=== PATIENT | male | born 1985 | race American Indian/Alaskan Native ===

== ENCOUNTER 2017-07-03 20:33 | Emergency (ER) | payer SELFPAY ==
[2017-07-03 23:04] LABS: Hematocrit 46.4 % (35.5-45.6); Hemoglobin 15.2 gm/dl (11.8-15.2); Mean Corpuscular HGB Conc 33 % (32-34); Mean Corpuscular Hemoglobin 28 pg (28-32); Mean Corpuscular Volume 87 fl (84-94); Platelet Count 228 K/mm3 (140-440); Red Blood Count 5.35 M/mm3 (3.65-5.03); Red Cell Distribution Width 14.3 % (13.2-15.2)
[2017-07-03 23:15] LABS: BUN/Creatinine Ratio 14; Blood Urea Nitrogen 13 mg/dL (9-20); Calcium 8.9 mg/dL (8.4-10.2); Hemolysis Index 34
--- NOTE | 2017-07-03 23:29 | XRay Report ---
FINAL REPORT EXAM: XR CHEST ROUTINE 2V HISTORY: Shortness of breath TECHNIQUE: Chest two views PRIORS: None. FINDINGS: Cardiac and mediastinal contours are unremarkable. No focal pulmonary infiltrate is identified. No pleural fluid collection seen. Pulmonary vasculature is unremarkable. IMPRESSION: Negative single-view chest
[2017-07-04 00:23] LABS: Bilirubin,Urine NEG (Negative); Blood,Urine MOD (Negative); Color,Urine Yellow (Yellow); Mucus,Urine FEW /HPF; Protein,Urine <15 mg/dL mg/dL (Negative); Urobilinogen,Urine < 2.0 mg/dL (<2.0); WBC,Urine < 1.0 /HPF (0.0-6.0)
[2017-07-04 00:28] LABS: Basophils % (Manual) 0 % (0.0-1.8); Total Cells Counted 100
[2017-07-04 00:29] LABS: Anisocytosis RARE; Stomatocytes Rare
--- NOTE | 2017-07-04 02:36 | Emergency Department Report ---
HPI - General Chief Complaint: Dyspnea/Respdistress Time Seen by Provider: 07/04/17 02:18 - HPI HPI: Room 18 The patient is a 32-year-old male presenting with a chief complaint shortness of breath and snoring at night. The patient states she's been told for 2 years that he snores very loudly and appears to have difficulty breathing and sleeping. The patient also noticed to chronic cough past 2 years. Patient denies chest pain. Patient states for the past 2 weeks she's had intermittent tightening of his abdomen. Patient denies any history of fever. The patient states he does not have a primary physician is not had a sleep study for his above complaints Location: [See above] Duration: 2 years Quality: [See above] Severity: Moderate Modifying factors: [see above] Context: [see above] Mode of transportation: [not driving] ED Past Medical Hx - Past Medical History Previous Medical History?: No Additional medical history: "had really bad strep infection, the strep virus was eating at my spine"-?2014/2015, undx'd sleep apnea - Surgical History Past Surgical History?: No - Family History Family history: no significant - Social History Smoking Status: Current Every Day Smoker (1/7 per day) Substance Use Type: Alcohol (3 cans of beers daily) - Medications Home Medications: Home Medications Medication Instructions Recorded Confirmed Last Taken Type ALBUTEROL Inhaler [ProAir HFA 2 puff IH QID PRN #1 inhalation 07/04/17 Unknown Rx Inhaler] ED Review of Systems ROS: Stated complaint: SOB/ABD PAIN Other details as noted in HPI Constitutional: denies: fever Respiratory: cough, shortness of breath (while asleep) Cardiovascular: denies: chest pain Gastrointestinal: abdominal pain, nausea, vomiting Physical Exam - Physical Exam Vital Signs: Vital Signs 07/03/17 07/04/17 07/04/17 22:39 02:24 02:26 Temperature 98.4 F 98.9 F Pulse Rate 80 82 Respiratory 18 14 22 Rate Blood Pressure 148/100 Blood Pressure 140/82 [Left] O2 Sat by Pulse 98 98 98 Oximetry Physical Exam: GENERAL: The patient is well-developed well-nourished male sitting on stretcher not appearing to be in acute distress. [] HEENT: Normocephalic. Atraumatic. Extraocular motions are intact. Patient has moist mucous membranes. NECK: Supple. Trachea midline CHEST/LUNGS: Clear to auscultation. There is no respiratory distress noted. HEART/CARDIOVASCULAR: Regular. There is no tachycardia. There is no gallop rub or murmur. ABDOMEN: Abdomen is soft, nontender. Patient has normal bowel sounds. There is no abdominal distention. No evidence of abdominal hernia when patient raise his head stretcher SKIN: There is no rash. There is no edema. There is no diaphoresis. NEURO: The patient is awake, alert, and oriented. The patient is cooperative. The patient has normal speech MUSCULOSKELETAL: There is no evidence of acute injury. ED Course Vital Signs 07/03/17 07/04/17 07/04/17 22:39 02:24 02:26 Temperature 98.4 F 98.9 F Pulse Rate 80 82 Respiratory 18 14 22 Rate Blood Pressure 148/100 Blood Pressure 140/82 [Left] O2 Sat by Pulse 98 98 98 Oximetry ED Medical Decision Making - Lab Data Result diagrams: 07/03/17 22:54 07/03/17 22:54 Laboratory Tests 07/03/17 07/03/17 07/04/17 22:54 22:54 00:07 WBC 11.4 H RBC 5.35 H Hgb 15.2 Hct 46.4 H MCV 87 MCH 28 MCHC 33 RDW 14.3 Plt Count 228 Add Manual Diff Complete Total Counted 100 Seg Neuts % (Manual) 58.0 Band Neutrophils % 0 Lymphocytes % (Manual) 29.0 Reactive Lymphs % (Man) 0 Monocytes % (Manual) 11.0 H Eosinophils % (Manual) 2.0 Basophils % (Manual) 0 Metamyelocytes % 0 Myelocytes % 0 Promyelocytes % 0 Blast Cells % 0 Nucleated RBC % Not Reportable Seg Neutrophils # Man 6.6 Band Neutrophils # 0.0 Lymphocytes # (Manual) 3.3 Abs React Lymphs (Man) 0.0 Monocytes # (Manual) 1.3 H Eosinophils # (Manual) 0.2 Basophils # (Manual) 0.0 Metamyelocytes # 0.0 Myelocytes # 0.0 Promyelocytes # 0.0 Blast Cells # 0.0 WBC Morphology Not Reportable Hypersegmented Neuts Not Reportable Hyposegmented Neuts Not Reportable Hypogranular Neuts Not Reportable Smudge Cells Not Reportable Toxic Granulation Not Reportable Toxic Vacuolation Not Reportable Dohle Bodies Not Reportable Pelger-Huet Anomaly Not Reportable Digna Rods Not Reportable Platelet Estimate Appears normal Clumped Platelets Not Reportable Plt Clumps, EDTA Not Reportable Large Platelets Not Reportable Giant Platelets Not Reportable Platelet Satelliting Not Reportable Plt Morphology Comment Not Reportable RBC Morphology Not Reportable Dimorphic RBCs Not Reportable Polychromasia Not Reportable Hypochromasia Not Reportable Poikilocytosis Not Reportable Anisocytosis Rare Microcytosis Not Reportable Macrocytosis Not Reportable Spherocytes Not Reportable Pappenheimer Bodies Not Reportable Sickle Cells Not Reportable Target Cells Not Reportable Tear Drop Cells Not Reportable Ovalocytes Not Reportable Stomatocytes Rare Helmet Cells Not Reportable Robertson-[place] Bodies Not Reportable Becker Rings Not Reportable [place] Cells Not Reportable Bite Cells Not Reportable Crenated Cell Not Reportable Elliptocytes Not Reportable Acanthocytes (Spur) Not Reportable Rouleaux Not Reportable Hemoglobin C Crystals Not Reportable Schistocytes Not Reportable Malaria parasites Not Reportable Chris Bodies Not Reportable Hem Pathologist Commnt No Sodium 138 Potassium 4.4 Chloride 98.4 Carbon Dioxide 26 Anion Gap 18 BUN 13 Creatinine 0.9 Estimated GFR > 60 BUN/Creatinine Ratio 14 Glucose 120 H Calcium 8.9 Urine Color Yellow Urine Turbidity Clear Urine pH 5.0 Ur Specific [place] 1.017 Urine Protein <15 mg/dl Urine Glucose (UA) 150 Urine Ketones Neg Urine Blood Mod Urine Nitrite Neg Urine Bilirubin Neg Urine Urobilinogen < 2.0 Ur Leukocyte Esterase Neg Urine WBC (Auto) < 1.0 Urine RBC (Auto) 3.0 Urine Mucus Few - EKG Data -: EKG Interpreted by Me EKG shows normal: sinus rhythm Rate: normal - EKG Data When compared to previous EKG there are: previous EKG unavailable Interpretation: nonspecific ST-T wave nasrin (T-wave inversion in lead 3) - Radiology Data Radiology results: report reviewed (chest x-ray), image reviewed (chest x-ray) interpreted by me: Chest x-ray-no focal infiltrates, no pneumothorax [facility] [address] [place] [address] XRay Report Signed Patient: ALFREDO VALENZUELA MR#: [id number] : 1985 Acct:[id number] Age/Sex: 32 / M ADM Date: 07/03/17 Loc: ED Attending Dr: Ordering Physician: TR WALLACE MD Date of Service: 07/03/17 Procedure(s): XR chest routine 2V Accession Number(s): [id number] cc: TR WALLACE MD Fluoro Time In Minutes: FINAL REPORT EXAM: XR CHEST ROUTINE 2V HISTORY: Shortness of breath TECHNIQUE: Chest two views PRIORS: None. FINDINGS: Cardiac and mediastinal contours are unremarkable. No focal pulmonary infiltrate is identified. No pleural fluid collection seen. Pulmonary vasculature is unremarkable. IMPRESSION: Negative single-view chest Transcribed By: DELGADO Dictated By: ABDIRIZAK JEAN MD Electronically Authenticated By: ABDIRIZAK JEAN MD Signed Date/Time: 07/03/172323 DD/ 23 TD/TT: 07/03/172323 - Medical Decision Making I discussed with the patient at length my concern for obstructive sleep apnea being the source of this complaints. Patient verbalized understanding. I explained to him that he needs to follow up with primary physician so that sleep study can be ordered for confirmation. Patient verbalized understanding - Differential Diagnosis obstructive sleep apnea Critical care attestation.: If time is entered above; I have spent that time in minutes in the direct care of this critically ill patient, excluding procedure time. ED Disposition Clinical Impression: Obstructive sleep apnea Disposition: -01 TO HOME OR SELFCARE Is pt being admited?: No Does the pt Need Aspirin: No Condition: Stable Instructions: Snoring (ED) Additional Instructions: Return to the emergency department immediately should you develop worsening symptoms, fever, inability to tolerate food or liquid or any other concerns. Prescriptions: ALBUTEROL Inhaler [ProAir HFA Inhaler] 2 puff IH QID PRN #1 inhalation PRN Reason: Shortness Of Breath Referrals: [facility] [Outside] - [facility] (Please follow up here to be established as a patient and for further evaluation of your symptoms) Time of Disposition: 02:44
[2017-07-04 04:10] VITALS: BP 138/96
== END 2017-07-04 04:10 | disposition home or self-care (01) ==
LOC: ED 20:33
DX: G47.33 Obstructive sleep apnea (adult) (pediatric) (principal); R06.02 Shortness of breath; R05 Cough; R10.9 Unspecified abdominal pain; F17.210 Nicotine dependence, cigarettes, uncomplicated
CPT/HCPCS: 36415; 71046; 80048; 81001; 85007; 85025; 93005; 93010; 99284